=== PATIENT | male | born 1985 | race Two or more races ===

== ENCOUNTER 2023-08-19 13:56 | Outpatient (AMB) | payer OTHER, SELFPAY ==
--- NOTE | 2023-08-19 13:54 | MHC.OFFVIS ---
Intake Intake Visit Reasons: Nocturia/Frequency Intake Note: Patient is Present for Telephone Nocturia/Urinary Frequency Antibiotic Allergies: None Blood Thinners: None [facility]: [facility] Allergies bees Allergy (Unknown, Uncoded 08/19/23 13:58) Unknown Medication List - Last Reconciled 08/19/23 by Kwesi Hickman MD tamsulosin (Flomax) 0.4 mg PO BEDTIME 30 days valacyclovir 500 mg PO BID 3 days HPI HPI Comments History of Present Illness Details Alex is a pleasant male. He is a patient of Dr. Santillan. He seen for the following urologic conditions - urinary hesitancy Telemedicine Evaluation 15 min Consultation [employer] Opal Video Urinary hesitancy Progressive since late 20s, LE 30s Hesitancy, feeling of incomplete emptying, weakness of stream Does notice that in public other people are able to fully empty bladder washed he is urinating Symptoms consistent with trapped prostate Pathophysiology discussed Trial Flomax May benefit from prostate incision if good response to medications Review of Systems Const All systems reviewed & are unremarkable except as noted in HPI and below Reports no additional complaints Resp Reports no additional complaints GI Reports no additional complaints Reports as per HPI Musc Reports no additional complaints Physical Exam Telemedicine evaluation Appropriate responses Regular breathing rate and rhythm HEENT Head: Yes normal to inspection Ears: hearing grossly normal bilaterally Eyes General: appearance normal, both eyes and all related structures Neck Neck: Yes normal visual inspection Chest Chest palpation & inspection: normal inspection of the chest Resp Effort & Inspection: normal respiratory effort and able to speak in complete sentences Assessment & Plan Assessment & Plan (1) Bladder outlet obstruction: Code(s): N32.0 - Bladder-neck obstruction Plan Trial Flomax Medications: New tamsulosin (Flomax) 0.4 mg PO BEDTIME 30 days 30 caps 0RF N32.0 - Bladder-neck obstruction Patient Instructions: Imaging studies, laboratory and physical exam results were discussed and reviewed in detail. No major barriers to patient understanding were identified. An opportunity to ask questions regarding the treatment plan was provided. All questions were answered. The patient expressed understanding and agreement with the above treatment plan. The patient is aware they should contact our office by phone for worsening of their current condition or the appearance of new urologic symptoms. Compliance is encouraged with any medications and followup testing that is ordered. It is a privilege to participate in the urologic care of your patient. If you have any questions or concerns regarding treatment for the above conditions, or other urologic issues, please do not hesitate to contact me. The office telephone contact is [phone]. This note is constructed using voice recognition software. While every effort has been made to ensure accuracy injector assembler errors may have been included. Yours sincerely, Dr Kwesi Hickman MD, [facility] - Urology Providers of Expert, Compassionate Care for the Genitourinary System Telehealth Telehealth Location of provider rendering services: practice address Location of patient: address on file Patient Identification confirmed using: Name, : Yes Telehealth method: voice only Patient verbally consented to treatment: Yes Patient verbally consented to billing insurance company: Yes Patient informed of any privacy concerns related to visit: Yes Coding Level of Care Code Tele New Pt Level 4 (92129) Diagnoses Bladder outlet obstruction N32.0
== END 2023-08-19 15:31 | disposition home or self-care (01) ==
LOC: HO.HUSH 13:56
PROVIDERS: PCP Internal Medicine; Visit Provider Urology
DX: N32.0 Bladder-neck obstruction (principal)
CPT/HCPCS: 99204

== ENCOUNTER → 2023-08-19 13:56 | Outpatient (BNVA) | payer OTHER, SELFPAY | PROVIDERS: PCP Internal Medicine; Visit Provider Urology ==

== ENCOUNTER 2023-09-17 15:37 | Outpatient (AMB) | payer OTHER, SELFPAY ==
--- NOTE | 2023-09-17 15:38 | MHC.OFFVIS ---
Intake Intake Visit Reasons: Medication follow up Intake Note: Patient is present for telehealth follow up Allergies bees Allergy (Unknown, Uncoded 09/17/23 15:39) Unknown Medication List - Last Reconciled 09/17/23 by Kwesi Hickman MD oxybutynin chloride ER 10 mg PO DAILY 30 days tamsulosin (Flomax) 0.4 mg PO BEDTIME 30 days valacyclovir 500 mg PO BID 3 days HPI HPI Comments History of Present Illness Details Alex is a pleasant male. He is a patient of Dr. Santillan. He seen for the following urologic conditions - urinary hesitancy - urinary urge Telemedicine Evaluation 15 min Consultation [employer] Opal Video Minimal benefit from Flomax Possible urinary urge Urinary hesitancy Progressive since late 20s, LE 30s Hesitancy, feeling of incomplete emptying, weakness of stream Does notice that in public other people are able to fully empty bladder washed he is urinating Symptoms consistent with trapped prostate Pathophysiology discussed May benefit from prostate incision if good response to medications Review of Systems Const All systems reviewed & are unremarkable except as noted in HPI and below Reports no additional complaints Resp Reports no additional complaints GI Reports no additional complaints Reports as per HPI Musc Reports no additional complaints Physical Exam Telemedicine evaluation Appropriate responses Regular breathing rate and rhythm HEENT Head: Yes normal to inspection Ears: hearing grossly normal bilaterally Eyes General: appearance normal, both eyes and all related structures Neck Neck: Yes normal visual inspection Chest Chest palpation & inspection: normal inspection of the chest Resp Effort & Inspection: normal respiratory effort and able to speak in complete sentences Assessment & Plan Assessment & Plan (1) Urinary urgency: Code(s): R39.15 - Urgency of urination Plan trial oxybutinin Medications: New oxybutynin chloride ER 10 mg PO DAILY 30 days 30 tabs 1RF N32.81 - Overactive bladder, R39.15 - Urgency of urination Patient Instructions: Imaging studies, laboratory and physical exam results were discussed and reviewed in detail. No major barriers to patient understanding were identified. An opportunity to ask questions regarding the treatment plan was provided. All questions were answered. The patient expressed understanding and agreement with the above treatment plan. The patient is aware they should contact our office by phone for worsening of their current condition or the appearance of new urologic symptoms. Compliance is encouraged with any medications and followup testing that is ordered. It is a privilege to participate in the urologic care of your patient. If you have any questions or concerns regarding treatment for the above conditions, or other urologic issues, please do not hesitate to contact me. The office telephone contact is [phone]. This note is constructed using voice recognition software. While every effort has been made to ensure accuracy research methods instructor errors may have been included. Yours sincerely, Dr Kwesi Hickman MD, [facility] - Urology Providers of Expert, Compassionate Care for the Genitourinary System Telehealth Telehealth Location of provider rendering services: practice address Location of patient: address on file Patient Identification confirmed using: Name, : Yes Telehealth method: voice only Patient verbally consented to treatment: Yes Patient verbally consented to billing insurance company: Yes Patient informed of any privacy concerns related to visit: Yes Coding Level of Care Code Tele Est Pt Level 4 (34704) Diagnoses Urinary urgency R39.15
== END 2023-09-17 16:13 | disposition home or self-care (01) ==
LOC: HO.HUSH 15:37
PROVIDERS: PCP Internal Medicine; Visit Provider Urology
DX: R39.15 Urgency of urination (principal)
CPT/HCPCS: 99214

== ENCOUNTER → 2023-09-17 15:37 | Outpatient (BNVA) | payer OTHER, SELFPAY | PROVIDERS: PCP Internal Medicine; Visit Provider Urology ==

== ENCOUNTER 2023-10-08 12:26 | Outpatient (AMB) | payer OTHER, SELFPAY ==
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
[2023-10-08 12:38] VITALS: BP 118/72; PULSE 51; O2SAT 99; BMI 28.1
[2023-10-08 13:08] VITALS: PULSE 58
== END 2023-10-08 13:11 | disposition home or self-care (01) ==
PROVIDERS: PCP Internal Medicine; Visit Provider Nurse Practitioner Primary Care
DX: Z00.00 Encounter for general adult medical examination without abnormal findings (principal)
CPT/HCPCS: 99385

== ENCOUNTER 2023-10-15 11:24 | Outpatient (AMB) | payer OTHER, SELFPAY ==
--- NOTE | 2023-10-15 11:32 | A.OFFVIS_ITS ---
Intake Intake Visit Reasons: 4wk follow up Intake Note: Patient is present for telehealth follow up Allergies bees Allergy (Unknown, Uncoded 10/08/23 12:50) Unknown HPI HPI Comments 2 History of Present Illness Details Alex is a pleasant male. He is a patient of Dr. Santillan. He seen for the following urologic conditions - urinary hesitancy - urinary urge Telemedicine Evaluation 15 min Consultation [employer] Opal Video Previously discussed urinary urgency Did not really benefit from trial of oxybutynin At this point will just try to reduce bladder irritants We did discuss diagnostic cystoscopy Urinary hesitancy Progressive since late 20s, LE 30s Hesitancy, feeling of incomplete emptying, weakness of stream Does notice that in public other people are able to fully empty bladder washed he is urinating Symptoms consistent with trapped prostate Pathophysiology discussed May benefit from prostate incision if good response to medications [facility] Medical History (Updated 10/08/23 @ 13:14 by BRYCE Easton) Lower back pain Urinary urgency Bladder outlet obstruction Surgical History No pertinent past surgical history Family History (Updated 10/08/23 @ 12:55 by BRYCE Easton) Father Diabetes type 2, controlled Social History Housing: House Alcohol intake: current Alcohol intake frequency: does not drink Patient Tobacco Use Status: Never used Tobacco e-Cigarette/Vaping Use: Never Used service: No Current occupational status: employed Current occupation: [employer] Current occupational exposures/hazards: No Cognitive needs: No Hearing needs: No Vision needs: No Review of Systems Const All systems reviewed & are unremarkable except as noted in HPI and below Reports no additional complaints Resp Reports no additional complaints GI Reports no additional complaints Reports as per HPI Musc Reports no additional complaints Physical Exam Telemedicine evaluation Appropriate responses Regular breathing rate and rhythm HEENT Head: Yes normal to inspection Ears: hearing grossly normal bilaterally Eyes General: appearance normal, both eyes and all related structures Neck Neck: Yes normal visual inspection Chest Chest palpation & inspection: normal inspection of the chest Resp Effort & Inspection: normal respiratory effort and able to speak in complete sentences Assessment & Plan Assessment & Plan (1) Urinary urgency: Code(s): R39.15 - Urgency of urination Plan Will work on bladder irritation Patient Instructions: Imaging studies, laboratory and physical exam results were discussed and reviewed in detail. No major barriers to patient understanding were identified. An opportunity to ask questions regarding the treatment plan was provided. All questions were answered. The patient expressed understanding and agreement with the above treatment plan. The patient is aware they should contact our office by phone for worsening of their current condition or the appearance of new urologic symptoms. Compliance is encouraged with any medications and followup testing that is ordered. It is a privilege to participate in the urologic care of your patient. If you have any questions or concerns regarding treatment for the above conditions, or other urologic issues, please do not hesitate to contact me. The office telephone contact is [phone]. This note is constructed using voice recognition software. While every effort has been made to ensure accuracy skin carver errors may have been included. Yours sincerely, Dr Kwesi Hickman MD, [facility] - Urology Providers of Expert, Compassionate Care for the Genitourinary System Telehealth Telehealth Location of provider rendering services: practice address Location of patient: address on file Patient Identification confirmed using: Name, : Yes Telehealth method: voice only Patient verbally consented to treatment: Yes Patient verbally consented to billing insurance company: Yes Patient informed of any privacy concerns related to visit: Yes Coding Level of Care Code Tele Est Pt Level 3 (25690) Diagnoses Urinary urgency R39.15
== END 2023-10-15 11:50 ==
LOC: HO.HUSH 11:24
PROVIDERS: PCP Internal Medicine; Visit Provider Urology
DX: R39.15 Urgency of urination (principal)
CPT/HCPCS: 99213

== ENCOUNTER → 2023-10-15 11:24 | Outpatient (BNVA) | payer OTHER, SELFPAY | PROVIDERS: PCP Internal Medicine; Visit Provider Urology ==

== ENCOUNTER 2024-10-11 08:30 | Outpatient (AMB) | payer OTHER, SELFPAY ==
[2024-10-11 08:37] VITALS: BP 116/70; PULSE 62; O2SAT 99; BMI 27.4
--- NOTE | 2024-10-11 08:37 | MHC.PC.OV ---
Vital Signs 10/11/24 08:37 Height 5 ft 7 in Weight 175 lb BMI 27.4 BP 116/70 Blood Pressure Location Rt brachial Position Sitting Pulse 62 Pulse Source Pulse Oximeter Pulse Oximetry (%) 99 Intake Visit Reasons: PE Allergies bees Allergy (Unknown, Uncoded 10/11/24 09:29) Unknown Medication List - Last Reconciled 10/11/24 by DEZ Rowe No Known Home Meds Tobacco use date assessed: 10/11/24 Dental Screening Dental Screen Date: 10/11/24 Did you have a dental visit in the last 12 months?: Yes Did you have a dental problem in the last 6 months where you did not have access to dental care?: No Was dental information given to patient?: Patient has dentist HPI PE HPI Details History of Present Illness The patient is a 39-year-old male presenting with respiratory exertion issues. He describes episodes where he feels unable to catch his breath, especially during physical activity. The discomfort is not associated with arm pain, and he describes a feeling like exertion-induced pressure, though not pain. These symptoms range in intensity at times that he requires a deep breath to alleviate the sensations temporarily. The patient remembers undergoing an electrocardiogram many years ago, though current symptoms seem more exertion-related. There have been no interventions undertaken to date to address these episodes. Health Maintenance Social History Review of Systems - Respiratory: Reports exertion-induced breathlessness without pain radiating to the arm. -denies any Webb, dizziness, blood in stool, blurred vision, N/V, numbness and tingling, wheezing Physical Exam Results Plan - Suggest pulmonary function testing PFT) to evaluate respiratory symptoms related to exertion. - Suggest a stress test to further evaluate exertional breathlessness. - Address the presence of earwax with at-home wax removal kits or a professional in-office procedure if necessary. Patient was informed and verbally consented to the use of an ambient scribe for clinic note documentation during this visit. Discussion Notes Patient Instructions - Use an pbcz-drb-iwulhke earwax removal kit as advised. - Anticipate scheduling for pulmonary function tests. - Continue engaging in regular physical activity while monitoring for respiratory symptoms. ER with any worsening symptoms - Report any changes or worsening in symptoms before the next appointment. [facility] Medical History Lower back pain Urinary urgency Bladder outlet obstruction Surgical History No pertinent past surgical history Family History Father Diabetes type 2, controlled Social History Housing: House Alcohol intake: current Alcohol intake frequency: does not drink Patient Tobacco Use Status: Never used Tobacco e-Cigarette/Vaping Use: Never Used service: No Current occupational status: employed Current occupation: [employer] Current occupational exposures/hazards: No Cognitive needs: No Hearing needs: No Vision needs: No Questionnaire PHQ-9 Over the last 2 weeks, how often have you been bothered by any of the following problems? 1. Little interest or pleasure in doing things: not at all 2. Feeling down, depressed, or hopeless: not at all 3. Trouble falling or staying asleep, or sleeping too much: not at all 4. Feeling tired or having little energy: not at all 5. Poor appetite or overeating: not at all 6. Feeling bad about yourself - or that you are a failure or have let yourself or your family down: not at all 7. Trouble concentrating on things, such as reading the newspaper or watching television: not at all 8. Moving or speaking so slowly that other people could have noticed. Or the opposite - being so fidgety or restless that you have been moving around a lot more than usual: not at all 9. Thoughts that you would be better off or of hurting yourself in some way: not at all Total score: 0 Depression Screening Interpretation: Negative Depression Screening Done: Yes 76428 - PHQ-9 Billing: Yes Source: Developed by Drs. Rajendra Barry, Ca Franco, Lencho De La O and colleagues, with an educational ramon from [employer]. Thrive Questionnaire Date Thrive assessed: 10/11/24 I am a: Patient What is your living situation today?: I have a steady place to live Within the past 12 months, did the food you bought not last and you didn't have the money to get more?: Never true Within the past 12 months, did you worry whether your food would run out before you got money to buy more?: Never true Do you have trouble paying for medicines?: No Do you have trouble getting transportation to medical appointments?: No Do you have trouble paying your heating and electricity bill?: No Do you have trouble taking care of your child, family member or friend?: No Do you have trouble with day-to-day activities such as bathing, preparing meals, shopping, managing finances, etc.?: No Are you currently unemployed and looking for a job?: No Are you interested in more education?: No Please select the resources that you would like help with: None Currently or been in a relationship where the following occur: No concerns reported THRIVE Score: 0 AUDIT C Alcohol Use Questionnaire (AUDIT-C) 1. How often do you have a drink containing alcohol?: Never 3. How often do you have six or more drinks on one occasion?: Never Total Score: 0 Score Reviewed/Action Taken: Yes DAHIANA-7 AMB Questionnaire DAHIANA-7 Date DAHIANA - 7 assessed: 10/11/24 Feeling nervous, anxious, or on edge: 0 = Not at all Not being able to stop or control worryin = Not at all Worrying too much about different things: 0 = Not at all Trouble relaxin = Not at all Being so restless that it is hard to sit still: 0 = Not at all Becoming easily annoyed or irritable: 0 = Not at all Feeling afraid as if something awful might happen: 0 = Not at all Total DAHIANA-7 score (0-4 normal; 5-9 mild; 10-14 moderate; 15-21 severe): 0 Source: Developed by Drs. Rajendra Barry, Ca Franco, Lencho De La O and colleagues, with an educational armon from [employer]. DAHIANA-7 Assessment Billing DAHIANA-7 Assessment Tool: DAHIANA-7 Assessment 44344 Physical exam (Primary Care) Vital Signs: Last Vital Signs Pulse 62 10/11/24 08:37 BP 116/70 10/11/24 08:37 Pulse Ox 99 10/11/24 08:37 BMI result Body Mass Index 27.4 Tobacco/Smoking Status: Tobacco use Status Tobacco use date assessed 10/11/24 10/11/24 08:40 Patient Tobacco Use Status Never used Tobacco 10/11/24 08:40 e-Cigarette/Vaping Use Never Used 10/11/24 08:40 PHQ-9: PHQ-9 Score PHQ-9: Total score 0 10/11/24 08:40 Depression Screening Interpretation: Negative Thrive Assessment: Date of Thrive Assessment Date Thrive assessed 10/11/24 10/11/24 08:40 Currently or been in a relationship where the following occur: No concerns reported Const General: cooperative, healthy appearing, comfortable, no acute distress and well developed HENMT Other: faint cerumen noted bilat R>L Head: Yes normal to inspection General nose exam: Normal external nose present Teeth and gingiva: dentition normal Eyes Alignment and Position: alignment normal Neck Neck: Yes supple Resp Effort & Inspection: normal respiratory effort Auscultation: clear to auscultation bilaterally Cardio Rate: regular rate Rhythm: regular rhythm Heart sounds: S1 normal heart sound present, S2 normal heart sound present and no murmurs GI Inspection: Yes normal to inspection Palpation (GI): Soft to palpation and nontender Auscultation: normal bowel sounds Skin Lesions: no lesions Rashes: no rashes Neuro Cranial nerves: Yes CN's II-XII intact bilaterally Motor exam (neuro): 5/5 motor strength present throughout Extrem General: Yes normal to inspection Psych Appearance: grossly normal Mental Status: mental status grossly normal Speech and movement: Normal speech and movement present Thought process: Normal thought process present Thought content: Normal thought content present Insight: Good insight present (Psych) Coding Level of Care Code Est Pt Prev Care 18-39y(94154) Diagnoses Physical exam Z00.00 SOB (shortness of breath) R06.02 Chest discomfort R07.89 Additional Codes DAHIANA-7 Assessment Billing - DAHIANA-7 Assessment Tool: DAHIANA-7 Assessment 75241 ([id number]) PHQ-9 - 78621 - PHQ-9 Billing: Yes ([id number]) Assessment & Plan Assessment & Plan (1) Physical exam: Code(s): Z00.00 - Encounter for general adult medical examination without abnormal findings Category: Medical (2) SOB (shortness of breath): Code(s): R06.02 - Shortness of breath Category: Medical (3) Chest discomfort: Code(s): R07.89 - Other chest pain Category: Medical Plan . Orders: Orders PFT pulmonary function test Today R06.02 - Shortness of breath, R07.89 - Other chest pain AMB EKG-In Office Today R06.02 - Shortness of breath, R07.89 - Other chest pain CA stress test Today R06.02 - Shortness of breath, R07.89 - Other chest pain
== END 2024-10-11 09:22 | disposition home or self-care (01) ==
PROVIDERS: PCP Nurse Practitioner Family; Visit Provider Nurse Practitioner Family
DX: Z00.00 Encounter for general adult medical examination without abnormal findings (principal); R06.02 Shortness of breath; R07.89 Other chest pain

== ENCOUNTER → 2024-10-11 08:30 | Outpatient (BNVA) | payer OTHER, SELFPAY | PROVIDERS: PCP Nurse Practitioner Family; Visit Provider Nurse Practitioner Family | DX: Z00.00 Encounter for general adult medical examination without abnormal findings (principal); R06.02 Shortness of breath; R07.89 Other chest pain | CPT/HCPCS: 96127 ==

== ENCOUNTER 2025-04-12 10:07 | Outpatient (AMB) | payer OTHER, SELFPAY ==
[2025-04-12 10:14] VITALS: BP 122/76; PULSE 62; O2SAT 98; BMI 28.0
--- NOTE | 2025-04-12 10:14 | MHC.PC.OV ---
Vital Signs 04/12/25 10:14 Height 5 ft 7 in Weight 179 lb BMI 28.0 BP 122/76 Blood Pressure Location Lt brachial Position Sitting Pulse 62 Pulse Source Pulse Oximeter Pulse Oximetry (%) 98 Oxygen Delivery Method Room Air Intake Visit Reasons: 6 months f/up Accompanied by: Self / Same As Patient Allergies bees Allergy (Unknown, Uncoded 04/12/25 11:02) Unknown Medication List - Last Reconciled 04/12/25 by LUCIO RoweP- albuterol sulfate 90 mcg/actuation (Ventolin HFA) 1 puff inhalation QID PRN Tobacco use date assessed: 04/12/25 Dental Screening Dental Screen Date: 04/12/25 Did you have a dental visit in the last 12 months?: Yes Did you have a dental problem in the last 6 months where you did not have access to dental care?: No Was dental information given to patient?: Patient has dentist HPI 6 months f/up HPI Details Chief Complaint The patient presents for follow-up regarding asthma management. History of Present Illness The patient is a 40-year-old male presenting with asthma. Recent pulmonary function tests showed mild obstruction, but the patient denies current wheezing or dyspnea, although he has experienced slight symptoms in colder weather last year. He is an avid runner and cyclist, reporting no issues during these activities. No bronchodilator response was observed on the pulmonary function test, and he has been advised to try albuterol before running to evaluate its benefit. Social History - Exercise: Avid runner and cyclist Health Maintenance Review of Systems - Respiratory: Denies wheezing, denies dyspnea Physical Exam General: Cooperative, healthy appearing, comfortable, no acute distress and well developed Orientation: Patient oriented x3 Limitations: No limitations Head: Normal to inspection Ears: Hearing grossly normal bilaterally Nose: Normal external nose present Face and sinus: Normal facial exam Eyes: Appearance normal, both eyes and all related structures Neck: Normal visual inspection and Yes full ROM Respiratory: Normal respiratory effort and able to speak in complete sentences. Clear to auscultation bilaterally Cardiovascular: Regular rate and rhythm. Normal S1 and S2 GI: Normal to inspection. Soft to palpation and nontender Skin: No rashes or lesions noted Neuro: Patient oriented x3 Extremities: Normal to inspection Results - Pulmonary Function Test: Mild obstruction, no bronchodilator response Plan The patient will be monitored for asthma symptoms, particularly during colder weather, as he had previous episodes during this time. He is advised to use albuterol before running to assess its effectiveness in preventing symptoms. A follow-up appointment will be scheduled for a physical examination in November. Discussion Notes I discussed with the patient the results of his pulmonary function test, which showed mild obstruction without bronchodilator response. We talked about trying albuterol before running to see if it helps with his symptoms. I advised him to contact me with any questions or concerns and to schedule a follow-up physical in November. Patient Instructions - Use albuterol before running to see if it helps with symptoms. - Monitor for asthma symptoms, especially during colder weather. - Schedule a follow-up physical examination in November. [facility] Medical History Impingement syndrome of right shoulder Lower back pain Urinary urgency Bladder outlet obstruction Surgical History No pertinent past surgical history Family History Father Diabetes type 2, controlled Social History Housing: House Alcohol intake: current Alcohol intake frequency: does not drink Patient Tobacco Use Status: Never used Tobacco e-Cigarette/Vaping Use: Never Used service: No Current occupational status: employed Current occupation: [employer] Current occupational exposures/hazards: No Cognitive needs: No Hearing needs: No Vision needs: No Questionnaire PHQ-9 Over the last 2 weeks, how often have you been bothered by any of the following problems? 1. Little interest or pleasure in doing things: not at all 2. Feeling down, depressed, or hopeless: not at all 3. Trouble falling or staying asleep, or sleeping too much: not at all 4. Feeling tired or having little energy: not at all 5. Poor appetite or overeating: not at all 6. Feeling bad about yourself - or that you are a failure or have let yourself or your family down: not at all 7. Trouble concentrating on things, such as reading the newspaper or watching television: not at all 8. Moving or speaking so slowly that other people could have noticed. Or the opposite - being so fidgety or restless that you have been moving around a lot more than usual: not at all 9. Thoughts that you would be better off or of hurting yourself in some way: not at all Total score: 0 Depression Screening Interpretation: Negative Depression Screening Done: Yes 52105 - PHQ-9 Billing: Yes Source: Developed by Drs. Rajendra Barry, Ca Franco, Lencho De La O and colleagues, with an educational ramon from [employer]. Thrive Questionnaire Date Thrive assessed: 04/12/25 I am a: Patient What is your living situation today?: I have a steady place to live Within the past 12 months, did the food you bought not last and you didn't have the money to get more?: Never true Within the past 12 months, did you worry whether your food would run out before you got money to buy more?: Never true Do you have trouble paying for medicines?: No Do you have trouble getting transportation to medical appointments?: No Do you have trouble paying your heating and electricity bill?: No Do you have trouble taking care of your child, family member or friend?: No Do you have trouble with day-to-day activities such as bathing, preparing meals, shopping, managing finances, etc.?: No Are you currently unemployed and looking for a job?: No Are you interested in more education?: No Please select the resources that you would like help with: None Currently or been in a relationship where the following occur: No concerns reported THRIVE Score: 0 AUDIT C Alcohol Use Questionnaire (AUDIT-C) 1. How often do you have a drink containing alcohol?: Never 3. How often do you have six or more drinks on one occasion?: Never Total Score: 0 Score Reviewed/Action Taken: Yes DAHIANA-7 AMB Questionnaire DAHIANA-7 Date DAHIANA - 7 assessed: 04/12/25 Feeling nervous, anxious, or on edge: 0 = Not at all Not being able to stop or control worryin = Not at all Worrying too much about different things: 0 = Not at all Trouble relaxin = Not at all Being so restless that it is hard to sit still: 0 = Not at all Becoming easily annoyed or irritable: 0 = Not at all Feeling afraid as if something awful might happen: 0 = Not at all Total DAHIANA-7 score (0-4 normal; 5-9 mild; 10-14 moderate; 15-21 severe): 0 Source: Developed by Drs. Rajendra Barry, Ca Franco, Lencho De La O and colleagues, with an educational ramon from [employer]. DAHIANA-7 Assessment Billing DAHIANA-7 Assessment Tool: DAHIANA-7 Assessment 78047 Physical exam (Primary Care) Vital Signs: Last Vital Signs Pulse 62 04/12/25 10:14 BP 122/76 04/12/25 10:14 Pulse Ox 98 04/12/25 10:14 Oxygen Delivery Method Room Air 04/12/25 10:14 BMI result Body Mass Index 28.0 Tobacco/Smoking Status: Tobacco use Status Tobacco use date assessed 04/12/25 04/12/25 10:17 Patient Tobacco Use Status Never used Tobacco 04/12/25 10:17 e-Cigarette/Vaping Use Never Used 04/12/25 10:17 PHQ-9: PHQ-9 Score PHQ-9: Total score 0 04/12/25 10:17 Depression Screening Interpretation: Negative Thrive Assessment: Date of Thrive Assessment Date Thrive assessed 04/12/25 04/12/25 10:17 Currently or been in a relationship where the following occur: No concerns reported Coding Level of Care Code Est Pt Level 3 (10716) Diagnoses SOB (shortness of breath) R06.02 Asthma J45.909 Additional Codes DAHIANA-7 Assessment Billing - DAHIANA-7 Assessment Tool: DAHIANA-7 Assessment 41709 ([id number]) PHQ-9 - 14170 - PHQ-9 Billing: Yes ([id number]) Assessment & Plan Assessment & Plan (1) SOB (shortness of breath): Code(s): R06.02 - Shortness of breath Category: Medical (2) Asthma: Code(s): J45.909 - Unspecified asthma, uncomplicated Category: Medical Plan . Medications: New albuterol sulfate 90 mcg/actuation (Ventolin HFA) 1 puff inhalation QID PRN 8.5 grams 0RF shortness of breath or wheezing albuterol sulfate 90 mcg/actuation (Ventolin HFA) 1 puff inhalation QID PRN 8.5 grams 0RF shortness of breath or wheezing
== END 2025-04-12 11:04 | disposition home or self-care (01) ==
LOC: HO.HMCC 10:08
PROVIDERS: PCP Nurse Practitioner Family; Visit Provider Nurse Practitioner Family
DX: R06.02 Shortness of breath (principal); J45.909 Unspecified asthma, uncomplicated

== ENCOUNTER → 2025-04-12 10:07 | Outpatient (BNVA) | payer OTHER, SELFPAY | PROVIDERS: PCP Nurse Practitioner Family; Visit Provider Nurse Practitioner Family | DX: R06.02 Shortness of breath (principal); J45.909 Unspecified asthma, uncomplicated | CPT/HCPCS: 96127 ==

== ENCOUNTER 2025-07-12 11:01 | Outpatient (AMB) | payer OTHER, SELFPAY ==
--- NOTE | 2025-07-12 11:20 | MHC.OFFVIS ---
Intake Visit Reasons: Uroflow Allergies bees Allergy (Unknown, Uncoded 04/12/25 11:02) Unknown HPI Comments Details: Alex is a pleasant male. He is a patient of Dr. Barrera. He seen for the following urologic conditions - urinary hesitancy - urinary urge Prior discussion cystoscopy Underwent uroflow Capped flow 9 cc voided volume 100 Significant evidence bladder outlet obstruction Would recommend prostate incision Urinary hesitancy Progressive since late 20s, LE 30s Hesitancy, feeling of incomplete emptying, weakness of stream Does notice that in public other people are able to fully empty bladder washed he is urinating Symptoms consistent with trapped prostate Pathophysiology discussed May benefit from prostate incision if good response to medications [facility] Medical History (Updated 05/05/25 @ 13:13 by João Chester, [facility]) Osseous stenosis of neural canal of lumbar region Impingement syndrome of right shoulder Lower back pain Urinary urgency Bladder outlet obstruction Surgical History No pertinent past surgical history Family History Father Diabetes type 2, controlled Social History Housing: House Alcohol intake: current Alcohol intake frequency: does not drink Patient Tobacco Use Status: Never used Tobacco e-Cigarette/Vaping Use: Never Used service: No Current occupational status: employed Current occupation: [employer], Current occupational exposures/hazards: No Cognitive needs: No Hearing needs: No Vision needs: No Office Procedures Urodynamic Studies Consent Discussed risk and benefit or proposed procedure with the patient. Information consent for procedure given to the patient. Discussed technical aspects, risks, benefits and alternatives in full. Addressed all of the patient's questions and concerns regarding the procedure. The patient demonstrated knowledge and understanding. They wish to proceed with this procedure. Preparation The patient was prepped in the usual manner. A heating and cooling technician was present and in the room. Genitalia was prepped with betadine solution in a sterile manner. Prep: The patient was prepped in the usual manner. A heating and cooling technician was present and in the room. Genitalia was prepped with betadine solution in a sterile manner. [id number] Procedure code (CPT) selection complete AMB Uroflow Complex uroflow performed by: Kwesi Hickman Maximum urinary flow rate (mL/second): 11 Voided volume (mL): 400 Comments: Capped flow [id number]-Nprmdcztibav Procedure code (CPT) selection complete Assessment & Plan Assessment & Plan (1) Bladder outlet obstruction: Code(s): N32.0 - Bladder-neck obstruction Category: Medical Plan He will consider procedure Orders: Orders AMB Urodynamics Studies 07/12/25 N32.0 - Bladder-neck obstruction, R39.15 - Urgency of urination AMB Uroflow 07/12/25 N32.0 - Bladder-neck obstruction Patient Instructions: This note is constructed using voice recognition software. While every effort has been made to ensure accuracy lease purchase driver errors may have been included. Imaging studies, laboratory and physical exam results were discussed and reviewed in detail. No major barriers to patient understanding were identified. An opportunity to ask questions regarding the treatment plan was provided. All questions were answered. The patient expressed understanding and agreement with the above treatment plan. The patient is aware they should contact our office by phone for worsening of their current condition or the appearance of new urologic symptoms. Compliance is encouraged with any medications and followup testing that is ordered. It is a privilege to participate in the urologic care of your patient. If you have any questions or concerns regarding treatment for the above conditions, or other urologic issues, please do not hesitate to contact me. The office telephone contact is [phone]. Sincerely, Dr Kwesi Hickman MD, [facility] - Urology Compassionate Specialist Care for the Genitourinary System Coding Level of Care Code Est Pt Level 3 (96994) Diagnoses Bladder outlet obstruction N32.0 CPT Codes Urodynamic Studies - CPT: 93308-[id number] ([id number])
== END 2025-07-12 16:00 | disposition home or self-care (01) ==
LOC: HO.HUSH 11:02
PROVIDERS: PCP Nurse Practitioner Family; Visit Provider Urology
DX: N32.0 Bladder-neck obstruction (principal)
CPT/HCPCS: 99213

== ENCOUNTER → 2025-07-12 11:01 | Outpatient (BNVA) | payer OTHER, SELFPAY | PROVIDERS: PCP Nurse Practitioner Family; Visit Provider Urology | DX: Z46.6 Encounter for fitting and adjustment of urinary device (principal); N32.0 Bladder-neck obstruction; R39.15 Urgency of urination | CPT/HCPCS: 51741 ==

== ENCOUNTER 2025-09-26 06:03 | Day surgery (SDC) | payer OTHER, SELFPAY ==
[2025-09-20 11:06] VITALS: BMI 28.0
--- NOTE | 2025-09-20 11:40 | P.CONAN_ITS ---
Documented by User: Connie Polo NP 09/20/25 11:41 HPI - Anesthesia Eval Consult details Narrative: 40yo M for TUR Prostate PMFSH Active Problems Active Problems: All Active Problems Asthma (Acute) Chest discomfort (Acute) SOB (shortness of breath) (Acute) Physical exam (Acute) Urinary urgency (Acute) Bladder outlet obstruction (Acute) Past Medical History Medical History Asthma Osseous stenosis of neural canal of lumbar region Impingement syndrome of right shoulder Lower back pain Urinary urgency Bladder outlet obstruction Family History Family History Father Diabetes type 2, controlled Surgical History Surgical History No pertinent past surgical history Social History Social History Housing: House Are you a primary career technical education instructor to a significant other at home: No Do you presently have visiting nurse or other home services: No Alcohol intake: current Alcohol intake frequency: does not drink Patient Tobacco Use Status: Never used Tobacco e-Cigarette/Vaping Use: Never Used Second Hand Smoke Exposure: No Use of substances other than those prescribed or required for medical reasons: No Have you been hit, kicked, punched, or otherwise hurt by someone within the past year? If so, by whom?: No Are you DNR?: No Advance Directives: No Advance Directives Information Provided: Yes Advance Directives on File: No service: No Current occupational status: employed Current occupation: [email or web address] Current occupational exposures/hazards: No Cognitive needs: No Hearing needs: No Vision needs: No Meds Allergies Allergy/AdvReac Type Severity Reaction Status Date / Time bees Allergy Unknown Unknown Uncoded 04/12/25 11:02 Exam Height,Weight and Vital Signs: Height 5 ft 7 in Weight 81.193 kg Assessment and Plan Assessment Anesthesia Assessment: Chart Reviewed Documented by User: Sravani Chase MD 09/26/25 07:53 [facility] Past Medical History Medical History Asthma Osseous stenosis of neural canal of lumbar region Impingement syndrome of right shoulder Lower back pain Urinary urgency Bladder outlet obstruction Family History Family History Father Diabetes type 2, controlled Surgical History Surgical History No pertinent past surgical history History of Problems with Anesthesia: No Social History Social History Housing: House Are you a primary career technical education instructor to a significant other at home: No Do you presently have visiting nurse or other home services: No Alcohol intake: current Alcohol intake frequency: does not drink Patient Tobacco Use Status: Never used Tobacco e-Cigarette/Vaping Use: Never Used Second Hand Smoke Exposure: No Use of substances other than those prescribed or required for medical reasons: No Have you been hit, kicked, punched, or otherwise hurt by someone within the past year? If so, by whom?: No Are you DNR?: No Advance Directives: No Advance Directives Information Provided: Yes Advance Directives on File: No service: No Current occupational status: employed Current occupation: [employer] Current occupational exposures/hazards: No Cognitive needs: No Hearing needs: No Vision needs: No Meds Allergies Allergy/AdvReac Type Severity Reaction Status Date / Time bees Allergy Unknown Unknown Uncoded 04/12/25 11:02 Exam Airway Mallampati Class: II TM Dist: >3cm Neck ROM: Full Loose/Missing/Broken Teeth: No Heart: RRR Lungs: CTA Assessment and Plan Assessment Anesthesia Assessment: Anesthesia Plan Discussed Final Anesthetic Review History of Problems with Anesthesia: No NPO: Yes ASA Class: II Final Preanesthetic Review: Meds/Allgs Chart Reviewed, Consent Obtained/Reviewed and Anes Risks/Benef Reviewed Patient Risk: Low Procedure Risk: Low Anesthetic Plan Anesthetic Plan: GA Disposition: Standard PACU
[2025-09-26 06:29] VITALS: BP 100/56; PULSE 57; RESP 16; TEMP 36.6; O2SAT 98
[2025-09-26] MEDS: Lactated Ringers 1,000 ML 100 ML IVCONT (06:40)
--- NOTE | 2025-09-26 07:30 | MHC.SHP ---
Pre-Procedural Eval Section A - 24 Hr Update-Section A only Date of Service: 09/26/25 The patient is an INPATIENT: No Changes since office visit: No Cold of Flu in the past 2 weeks, No New Medical Problems, No Changes in Medication and No Patient answered all questions The patient has been examined within 24 hours of the surgical procedure. The History & Physical has been completed within 30 days and I have reviewed it.: No Section B - Complete if H&P > 30 days Chief Complaint: Bladder-neck obstruction Details of Present Illness: Longstanding bladder neck obstruction. Restricted stream. Improvement with alpha-alex. Tight prostate. Plan for prostate incision. Relevant Family History (Specify if Yes): No Relevant Social History: None Present Medications: see Short Stay Collaborative assessment Medical History: No relevant PMH History of Previous Operations: No relevant previous surgery Allergies: Allergies Allergy/AdvReac Type Severity Reaction Status Date / Time bees Allergy Unknown Unknown Uncoded 04/12/25 11:02 Review of Systems Sugical H&P ROS: Negative: Constitution, Cardiovascular, Respiratory, Neurological, Psychiatric, Hem-Onc, Allergic/Immunologic, Gastrointestinal, Genitourinary, Musculoskeletal, Integumentary, Endocrine and Eyes/Ears/Nose/Throat Exam Surgical H&P Exam: Normal: HEENT, Normal: Heart, Normal: Lungs, Normal: Extremities, Normal: Abdomen, Normal: Skin and Normal: Neurological Plan Diagnosis/Plan: Unchanged I have reviewed the history and physical and performed a pertinent physical examination on my patient. No changes have occurred unless specified. Time Spent With Patient Time: Total time managing care of this patient today ____ minutes.
--- NOTE | 2025-09-26 08:03 | W.PM.OPN ---
Operative Note Operative Note Date of Service: 09/26/25 Narrative: PreOperative Diagnosis: Bladder outlet obstruction Post Operative Diagnosis: Bladder outlet obstruction Procedure: CPT 81491 - Transurethral electrosurgical prostate resection Surgeon: Dr Kwesi Hickman Anesthesia: General History of bladder outlet obstruction. Treated with alpha-alex with good success. On office cystoscopy tight bladder neck. Recommendation for prostate procedure with plasma button Transurethral electrosurgical prostate resection. Size of prostate less than 40 cc. Risks and benefits have been discussed. Focus was placed on development of retrograde ejaculation which is a normal part of this procedure. Procedure: After informed consent was verified the patient was brought to the operating room and placed in a supine position. Anesthesia was administered per protocol. Patient was placed in modified dorsal lithotomy position and prepped and draped in a sterile fashion. Safety pause time-out was confirmed. Antibiotics have been given. A Twenty-four Barbadian cystoscope with visual obturator was inserted per urethra. No abnormalities were found of the anterior and bulbar urethra. The prostatic urethra shows tight bladder neck . The bladder was examined and both ureteric orifices were seen in their normal positions away from the area of interest. Bladder trabeculation Grade 2. The visual obturator was removed and replaced with a plasma button resection loop. Using the plasma button incisions were made at the 5 and 7 o'clock position. The initial incision was made at the 7 o'clock position starting level with the bladder neck and in line with ureteric orifice on that side. The groove was extended distally to the area just proximal of the veru. This groove was deepened with multiple passes to define the lateral aspects of the median lobe area. The proximal portion of the groove was extended through the bladder neck and remained in line with the ureteric orifice on each side. The goal was to reveal prostate strands from trhe surgical capsule. Once clearly defined the groove was extended in the lateral direction. The 05:00 o'clock position groove was then created in a similar fashion. Both ureteric orifices were reviewed again in shown to be patent in away from any areas of energy damage. The apical area was reviewed and any stray mucosal ooze was controlled. The bladder was emptied and prostate re-examined with control of any small bleeding areas. A 22 Barbadian 30 cc balloon Calix catheter was placed into the bladder using a flexible stylet. Clear efflux was obtained upon irrigation with a Toya piston syringe. 30 cc was placed in the balloon and gentle traction was placed. A snap was used to hold tension on the catheter to control bleeding during patient moved and transported. A drainage bag was placed. A belladonna and opiate suppository was placed Once transportation is complete to the PACU the snap will be removed. The patient tolerated the procedure well, he was extubated in the operating and transferred in a stable condition to the recovery area. Pathology: Drains: Calix catheter
[2025-09-26 08:10] VITALS: BP 100/58; PULSE 60; RESP 18; TEMP 36.3; O2SAT 98
[2025-09-26 08:15] VITALS: BP 102/63; PULSE 50; RESP 16; O2SAT 99
[2025-09-26 08:20] VITALS: BP 101/60; PULSE 53; RESP 16; O2SAT 96
[2025-09-26] MEDS: oxyCODONE HCl Immed Release 5 MG TABLET PO (08:20)
[2025-09-26 08:28] VITALS: BP 105/66; PULSE 52; RESP 18; O2SAT 96
[2025-09-26 08:40] VITALS: BP 98/63; PULSE 53; RESP 16; TEMP 36.3; O2SAT 97
== END 2025-09-26 09:00 | disposition home or self-care (01) ==
PROVIDERS: PCP Nurse Practitioner Family; Visit Provider Urology
PROC: 0VT08ZZ Resection of Prostate, Via Natural or Artificial Opening Endoscopic (ICD-10-PCS; CPT 52601; principal; 2025-09-26 07:30)
DX: N32.0 Bladder-neck obstruction (principal); R39.15 Urgency of urination; R39.11 Hesitancy of micturition; M54.50 Low back pain, unspecified
CPT/HCPCS: 52601; A4649; J1100; J1885; J1956; J2003; J2250; J2405; J2704; J3010

== ENCOUNTER → 2025-09-26 06:03 | Outpatient (BNV) | payer OTHER, SELFPAY | PROVIDERS: PCP Nurse Practitioner Family; Visit Provider Urology | DX: N32.0 Bladder-neck obstruction (principal) | CPT/HCPCS: 52601 ==

== ENCOUNTER 2025-10-13 10:16 | Outpatient (AMB) | payer OTHER, SELFPAY ==
--- NOTE | 2025-10-13 10:24 | A.OFFPC_ITS ---
Vital Signs 10/13/25 10:26 Height 5 ft 7 in Weight 180 lb BMI 28.2 BP 102/58 L Blood Pressure Location Lt brachial Position Sitting Respiration 16 Pulse 57 Pulse Source Pulse Oximeter Pulse Oximetry (%) 98 Oxygen Delivery Method Room Air Intake Visit Reasons: PE Print Manager Required: No Accompanied by: Self / Same As Patient Allergies bees Allergy (Unknown, Uncoded 10/13/25 10:29) Unknown Medication List - Last Reconciled 10/13/25 by LUCIO RoweP- albuterol sulfate 90 mcg/actuation (Ventolin HFA) 1 puff inhalation QID PRN tadalafil 2.5 mg PO DAILY 90 days Tobacco use date assessed: 10/13/25 Dental Screening Dental Screen Date: 04/12/25 Did you have a dental visit in the last 12 months?: Yes Did you have a dental problem in the last 6 months where you did not have access to dental care?: No Was dental information given to patient?: Patient has dentist HPI PE HPI Details History of Present Illness The patient is a 40 year old male presenting for a physical exam. He reports symptoms including chest pain, shortness of breath, abdominal pain, blood in his stool, constipation, and diarrhea. 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 He denies any suicidal or homicidal ideation. He has already received his flu vaccination. Health Maintenance - The patient is an active runner and is fairly athletic. - He has received his flu vaccination. - A follow-up physical exam is scheduled in one year. 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 Review of Systems - Cardiovascular: Reports chest pain. - Respiratory: Reports shortness of adelaide th. - Gastrointestinal: Reports abdominal pa in, blood in stool, constipation, and diarrhea. - Neurological: Denies dizziness. - Psychiatric: Denies any suicidal or ho micidal ideation. Physical Exam General: Cooperative, healthy appearing, comfortable, no acute distress and well developed Orientation: Patient oriented x3 Limitations: No limitations Head: Normal to inspection Ears: Hearing grossly normal bilaterally Nose: Normal external nose present Face and sinus: Normal facial exam Eyes: Appearance normal, both eyes and all related structures Neck: Normal visual inspection and Yes full ROM Respiratory: Normal respiratory effort and able to speak in complete sentences. Clear to auscultation bilaterally Cardiovascular: Regular rate and rhythm. Normal S1 and S2 GI: Normal to inspection. Soft to palpation and nontender : Testicles without masses/lesions and no hernias appreciated Skin: No rashes or lesions noted Neuro: Patient oriented x3 Extremities: Normal to inspection Results Plan 1. Annual Physical Examination The patient will follow up for another physical exam in one year. He knows to make contact with any further questions or concerns. labs were already ordered Discussion Notes I noted the patient's physical exam was completely benign. He has already received his flu vaccination. I will see him for another physical in one year, and he knows how to contact the office with any further questions or concerns. Patient Instructions - Please schedule a follow-up appointmen t for your next physical exam in one year. - Contact our office if you have any que stions or new concerns. [facility] Medical History Asthma Osseous stenosis of neural canal of lumbar region Impingement syndrome of right shoulder Lower back pain Urinary urgency Bladder outlet obstruction Surgical History No pertinent past surgical history Family History Father Diabetes type 2, controlled Social History Housing: House Are you a primary gericare aide teacher to a significant other at home: No Do you presently have visiting nurse or other home services: No Alcohol intake: current Alcohol intake frequency: does not drink Patient Tobacco Use Status: Never used Tobacco e-Cigarette/Vaping Use: Never Used Second Hand Smoke Exposure: No service: No Current occupational status: employed Current occupation: [employer], Current occupational exposures/hazards: No Cognitive needs: No Hearing needs: No Vision needs: No Questionnaire PHQ-9 Over the last 2 weeks, how often have you been bothered by any of the following problems? 1. Little interest or pleasure in doing things: not at all 2. Feeling down, depressed, or hopeless: not at all 3. Trouble falling or staying asleep, or sleeping too much: not at all 4. Feeling tired or having little energy: not at all 5. Poor appetite or overeating: not at all 6. Feeling bad about yourself - or that you are a failure or have let yourself or your family down: not at all 7. Trouble concentrating on things, such as reading the newspaper or watching television: not at all 8. Moving or speaking so slowly that other people could have noticed. Or the opposite - being so fidgety or restless that you have been moving around a lot more than usual: not at all 9. Thoughts that you would be better off or of hurting yourself in some way: not at all Total score: 0 Depression Screening Interpretation: Negative Depression Screening Done: Yes 35083 - PHQ-9 Billing: Yes Source: Developed by Drs. Rajendra Barry, Ca Franco, Lencho De La O and colleagues, with an educational ramon from [employer]. Thrive Questionnaire Date Thrive assessed: 04/12/25 I am a: Patient What is your living situation today?: I have a steady place to live Within the past 12 months, did the food you bought not last and you didn't have the money to get more?: Never true Within the past 12 months, did you worry whether your food would run out before you got money to buy more?: Never true Do you have trouble paying for medicines?: No Do you have trouble getting transportation to medical appointments?: No Do you have trouble paying your heating and electricity bill?: No Do you have trouble taking care of your child, family member or friend?: No Do you have trouble with day-to-day activities such as bathing, preparing meals, shopping, managing finances, etc.?: No Are you currently unemployed and looking for a job?: No Are you interested in more education?: No Please select the resources that you would like help with: None Currently or been in a relationship where the following occur: No concerns reported THRIVE Score: 0 DAHIANA-7 AMB Questionnaire DAHIANA-7 Date DAHIANA - 7 assessed: 10/13/25 Feeling nervous, anxious, or on edge: 0 = Not at all Not being able to stop or control worryin = Not at all Worrying too much about different things: 0 = Not at all Trouble relaxin = Not at all Being so restless that it is hard to sit still: 0 = Not at all Becoming easily annoyed or irritable: 0 = Not at all Feeling afraid as if something awful might happen: 0 = Not at all Total DAHIANA-7 score (0-4 normal; 5-9 mild; 10-14 moderate; 15-21 severe): 0 Source: Developed by Drs. Rajendra Barry, Ca Franco, Lencho De La O and colleagues, with an educational ramon from [employer]. DAHIANA-7 Assessment Billing DAHIANA-7 Assessment Tool: DAHIANA-7 Assessment 20209 Physical exam (Primary Care) Vital Signs: Last Vital Signs Pulse 57 10/13/25 10:26 Resp 16 10/13/25 10:26 BP 102/58 L 10/13/25 10:26 Pulse Ox 98 10/13/25 10:26 Oxygen Delivery Method Room Air 10/13/25 10:26 BMI result Body Mass Index 28.2 Tobacco/Smoking Status: Tobacco use Status Tobacco use date assessed 10/13/25 10/13/25 10:30 Patient Tobacco Use Status Never used Tobacco 10/13/25 10:30 e-Cigarette/Vaping Use Never Used 10/13/25 10:30 PHQ-9: PHQ-9 Score PHQ-9: Total score 0 10/13/25 10:30 Depression Screening Interpretation: Negative Thrive Assessment: Date of Thrive Assessment Date Thrive assessed 04/12/25 10/13/25 10:30 Currently or been in a relationship where the following occur: No concerns reported Coding Level of Care Code Est Pt Prev Care 18-39y(72680) Diagnoses Physical exam Z00.00 Additional Codes DAHIANA-7 Assessment Billing - DAHIANA-7 Assessment Tool: DAHIANA-7 Assessment 91228 ([id number]) PHQ-9 - 57995 - PHQ-9 Billing: Yes ([id number]) Assessment & Plan Assessment & Plan (1) Physical exam: Code(s): Z00.00 - Encounter for general adult medical examination without abnormal findings Category: Medical Plan . Orders: Orders Complete Blood Count Auto Diff 10/12/25 Z00.00 - Encounter for general adult medical examination without abnormal findings Comprehensive [place]. Panel Fast 10/12/25 Z00.00 - Encounter for general adult medical examination without abnormal findings TSH reflex Free T4 10/12/25 Z00.00 - Encounter for general adult medical examination without abnormal findings Vitamin D 25-OH (D2 and D3) 10/12/25 Z00.00 - Encounter for general adult medical examination without abnormal findings Lipid Panel 10/12/25 Z00.00 - Encounter for general adult medical examination without abnormal findings
[2025-10-13 10:26] VITALS: BP 102/58; PULSE 57; RESP 16; O2SAT 98; BMI 28.2
== END 2025-10-13 10:52 | disposition home or self-care (01) ==
LOC: HO.HMCC 10:17
PROVIDERS: PCP Nurse Practitioner Family; Visit Provider Nurse Practitioner Family
DX: Z00.00 Encounter for general adult medical examination without abnormal findings (principal)

== ENCOUNTER → 2025-10-13 10:16 | Outpatient (BNVA) | payer OTHER, SELFPAY | PROVIDERS: PCP Nurse Practitioner Family; Visit Provider Nurse Practitioner Family | DX: Z00.00 Encounter for general adult medical examination without abnormal findings (principal) | CPT/HCPCS: 96127 ==